=== PATIENT | female | born 1990 | race Caucasian/White ===

== ENCOUNTER 2018-04-15 23:16 | Emergency (ER) | payer SELFPAY ==
[2018-04-15 23:24] VITALS: BP 100/67; PULSE 68; RESP 16; TEMP 98.1; O2SAT 97
[2018-04-15] MEDS ORDERED: DiphenhydrAMINE 50 mg/ml Inj IM STA (23:42)
[2018-04-16] MEDS ORDERED: DiphenhydrAMINE 50 mg/ml Inj ONE (00:04)
--- NOTE | 2018-04-16 00:20 | C.PDOC ---
History Of Present Illness 27 year old female presents to the ED for evaluation of itchy rash for the past 2 days. Patient states she has not come into contact with any new allergens. Patient denies SOB, trouble swallowing, CP, weakness, numbness. Time Seen by Provider: 04/15/18 23:37 Chief Complaint (Nursing): Allergic Reaction History Per: Patient History/Exam Limitations: no limitations Onset/Duration Of Symptoms: Days (2) Current Symptoms Are (Timing): Still Present Possible Cause: Unknown Associated Symptoms: Skin Rash Recent travel outside of the [place] States: No Additional History Per: Patient Past Medical History Reviewed: Historical Data, Nursing Documentation, Vital Signs Vital Signs: Last Vital Signs Temp 98.1 F 04/15/18 23:22 Pulse 68 04/15/18 23:22 Resp 16 04/15/18 23:22 BP 100/67 04/15/18 23:22 Pulse Ox 97 04/16/18 00:20 - Medical History PMH: HTN Surgical History: (x3) - [facility] Procedures EXTRACTION OF POC, LOW CERVICAL, OPEN APPROACH (02/10/16) MONITORING OF POC, CARDIAC RATE, BAND NAILER APPROACH (02/10/16) OCCLUSION OF LEFT FALLOPIAN TUBE, OPEN APPROACH (02/10/16) Family History: States: Unknown Family Hx - Social History Hx Alcohol Use: No Hx Substance Use: No Review Of Systems Constitutional: Negative for: Fever, Chills ENT: Negative for: Mouth Swelling, Throat Swelling Respiratory: Negative for: Shortness of Breath Gastrointestinal: Negative for: Nausea, Vomiting Skin: Positive for: Rash Neurological: Negative for: Weakness, Numbness Physical Exam - Physical Exam Appears: Non-toxic, No Acute Distress Skin: Warm, Dry, Rash (urticaria) Head: Atraumatic, Normacephalic Eye(s): bilateral: Normal Inspection Oral Mucosa: Moist Tongue: No Swelling Lips: No Swelling Throat: Normal, No Erythema, No Exudate Neck: Normal ROM, Supple Chest: Symmetrical Cardiovascular: Rhythm Regular Respiratory: Normal Breath Sounds, No Rales, No Rhonchi, No Wheezing Extremity: Normal ROM, No Tenderness, No Swelling Neurological/Psych: Oriented x3, Normal Speech Gait: Steady ED Course And Treatment O2 Sat by Pulse Oximetry: 97 (ON RA) Pulse Ox Interpretation: Normal Progress Note: Plan: - benadryl 25 mg IM. - pepcid 20 mg PO. - prednisone 60 mg PO. Patient is resting comfortably, tolerating PO, has no shortness of breath, has no intra-oral swelling, no stridor, no rash or pruritus. Patient was advised to avoid potential allergens, and to follow up with physician in 1- 2 days. Disposition - Disposition Referrals: [facility] at [facility] [Outside] Disposition: HOME/ ROUTINE Disposition Time: 00:19 Condition: GOOD Additional Instructions: Follow up in Clinic within 1-2 days. Return to ED if feel worse. 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 - Scribe Statement The provider has reviewed the documentation as recorded by the Scribe Bernabe Rice All medical record entries made by the Scribe were at my direction and personally dictated by me. I have reviewed the chart and agree that the record accurately reflects my personal performance of the history, physical exam, medical decision making, and the department course for this patient. I have also personally directed, reviewed, and agree with the discharge instructions and disposition.
== END 2018-04-16 00:25 | disposition home or self-care (01) ==
LOC: C.ER 23:16
DX: L50.0 Allergic urticaria (principal)
CPT/HCPCS: 96372; 99283; J1200

== ENCOUNTER 2018-10-29 23:35 | Emergency (ER) | payer SELFPAY ==
[2018-10-29 23:42] VITALS: BP 103/72; PULSE 103; TEMP 100.7; O2SAT 98
[2018-10-29] MEDS ORDERED: Promethazine/Cod 6.25mg-10mg/5ml Syr UD PO STA (23:59)
[2018-10-30] MEDS ORDERED: Albuterol 0.083% Inhal Sol (2.5 mg/3 mL) UD ONE (00:01)
[2018-10-30] MEDS: Albuterol 0.083% Inhal Sol (2.5 mg/3 mL) UD INH SCH (00:03)
[2018-10-30] MEDS ORDERED: Promethazine/Cod 6.25mg-10mg/5ml Syr UD ONE (00:09)
--- NOTE | 2018-10-30 00:49 | C.PDOC ---
History Of Present Illness 27 y/o female presents to the ED with complaints of cough, chest congestion, nasal congestion, and sore throat for 1 week. Patient has not tried taking any OTC meds for cough. She did take Tylenol today. Otherwise she denies any ear pain, difficulty swallowing, nausea, vomiting, or difficulty breathing. Time Seen by Provider: 10/29/18 23:46 Chief Complaint (Nursing): ENT Problem History Per: Patient History/Exam Limitations: no limitations Onset/Duration Of Symptoms: Days Current Symptoms Are (Timing): Still Present Location Of Pain: Throat Sick Contacts (Context): None Past Medical History Reviewed: Historical Data, Nursing Documentation, Vital Signs Vital Signs: Last Vital Signs Temp 100.7 F H 10/29/18 23:40 Pulse 103 H 10/29/18 23:40 Resp 16 10/29/18 23:40 BP 103/72 10/29/18 23:40 Pulse Ox 98 10/29/18 23:40 - Medical History PMH: HTN Surgical History: (x3) - [facility] Procedures EXTRACTION OF POC, LOW CERVICAL, OPEN APPROACH (02/10/16) MONITORING OF POC, CARDIAC RATE, MEMBERSHIP SECRETARY APPROACH (02/10/16) OCCLUSION OF LEFT FALLOPIAN TUBE, OPEN APPROACH (02/10/16) Family History: States: Unknown Family Hx - Social History Hx Alcohol Use: No Hx Substance Use: No Review Of Systems Constitutional: Positive for: Fever ENT: Positive for: Nose Congestion, Throat Pain. Negative for: Ear Pain Cardiovascular: Positive for: Other (Chest congestion). Negative for: Chest Pain Respiratory: Positive for: Cough. Negative for: Shortness of Breath Gastrointestinal: Negative for: Nausea, Vomiting, Diarrhea Neurological: Negative for: Headache, Dizziness Physical Exam - Physical Exam Appears: Non-toxic, No Acute Distress Skin: Warm, Dry Head: Atraumatic, Normacephalic Eye(s): bilateral: Normal Inspection, PERRL, EOMI Nose: Other (enlarged turbinates bilaterally) Oral Mucosa: Moist Throat: Erythema (+ pharyngeal erythema), No Exudate Neck: Normal ROM, Supple Chest: Symmetrical Cardiovascular: Rhythm Regular, No Murmur Respiratory: No Decreased Breath Sounds, No Accessory Muscle Use, Rhonchi (bilaterally), Wheezing (bilaterally) Gastrointestinal/Abdominal: Soft, No Tenderness, No Distention Extremity: Bilateral: Normal Color And Temperature, Normal ROM Neurological/Psych: Oriented x3 ED Course And Treatment O2 Sat by Pulse Oximetry: 98 (RA) Pulse Ox Interpretation: Normal Progress Note: Patient given 2 albuterol nebs, oral prednisone, and promethazine with codeine. On reevaluation, she reports feeling better, in no distress. Plan is to d/c patient home with rx for oral pred, motrin, amoxicillin, and tessalon perles. Counseled regarding diagnosis and follow up instructions. Disposition Counseled Patient/Family Regarding: Diagnosis, Need For Followup, Rx Given - Disposition Referrals: [facility] [Outside] Disposition: HOME/ ROUTINE Disposition Time: 00:44 Condition: STABLE Additional Instructions: Please take medications as directeds Follow up in clinic Increase PO fluids Return to ER if worse Prescriptions: Amoxicillin 500 mg PO TID #21 tab Benzonatate [Tessalon Perles] 200 mg PO TID #14 sgl Ibuprofen [Motrin] 600 mg PO Q6H #30 tab predniSONE [Prednisone] 40 mg PO DAILY #8 tab Instructions: Acute Bronchitis, Adult (DC), Viral Upper Respiratory Infection, Adult (DC) Forms: [employer] (Lithuanian) Print Language: LATVIAN - Clinical Impression Clinical Impression: Bronchitis - 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 - Scribe Statement The provider has reviewed the documentation as recorded by the Matildeibrogelio Kemp All medical record entries made by the Matildeibrogelio were at my direction and personally dictated by me. I have reviewed the chart and agree that the record accurately reflects my personal performance of the history, physical exam, medical decision making, and the department course for this patient. I have also personally directed, reviewed, and agree with the discharge instructions and disposition.
[2018-10-30 00:57] VITALS: RESP 20
== END 2018-10-30 00:56 | disposition home or self-care (01) ==
LOC: C.ER 23:35
DX: J40 Bronchitis, not specified as acute or chronic (principal); I10 Essential (primary) hypertension

== ENCOUNTER 2019-03-01 16:00 | Emergency (ER) | payer SELFPAY ==
[2019-03-01 16:06] VITALS: BP 104/65; PULSE 70; RESP 18; TEMP 97.9; O2SAT 98
[2019-03-01] MEDS ORDERED: Tobramycin 0.3% OPHT SOLN OS STA (16:52)
--- NOTE | 2019-03-01 16:59 | C.PDOC ---
History Of Present Illness 28 year old female presents to ED with complaint of swelling and pain to the left eye since this morning. Patient stated that 3 days days ago she noticed a pimple on her left eyelid that was itchy and painful. Patient reports tearing but no discharge. Patient denies any visual changes, trauma, fever, chills, headache, weakness, and dizziness. Chief Complaint (Nursing): Eye Problem History Per: Patient History/Exam Limitations: no limitations Onset/Duration Of Symptoms: Days (3) Current Symptoms Are (Timing): Still Present Quality: "Pain" Wears Contact Lens?: No Associated Symptoms: Pain, Swelling, Itching. denies: Decreased Vision, FB Sensation Past Medical History Reviewed: Historical Data, Nursing Documentation, Vital Signs Vital Signs: Last Vital Signs Temp 97.9 F 03/01/19 16:04 Pulse 70 03/01/19 16:04 Resp 18 03/01/19 16:04 BP 104/65 03/01/19 16:04 Pulse Ox 98 03/01/19 16:04 Primary Care Provider: FAMILY PROVIDER,NO - Medical History PMH: HTN Surgical History: (x3) - [facility] Procedures EXTRACTION OF POC, LOW CERVICAL, OPEN APPROACH (02/10/16) MONITORING OF POC, CARDIAC RATE, PUNCH PRESS OPERATOR APPROACH (02/10/16) OCCLUSION OF LEFT FALLOPIAN TUBE, OPEN APPROACH (02/10/16) Family History: States: Unknown Family Hx - Social History Hx Alcohol Use: No Hx Substance Use: No Review Of Systems Constitutional: Positive for: Fever, Chills. Negative for: Weakness Eyes: Positive for: Pain (pain the left eye, itching, and swelling), Redness. Negative for: Vision Change Skin: Negative for: Rash Neurological: Negative for: Weakness, Numbness Physical Exam - Physical Exam Appears: Non-toxic, No Acute Distress Skin: Normal Color, Warm, Dry Head: Atraumatic, Normacephalic Eye(s): bilateral: PERRL, EOMI, Conjunctiva Pale, left: Other (nell edema of the left upper eyelid, tender to palpation, erythematous) Ear(s): Bilateral: Normal Nose: Normal, No Discharge Oral Mucosa: Moist Tongue: Normal Appearing Lips: Normal Appearing Throat: Normal, No Erythema, No Exudate Neck: Normal ROM, Supple Chest: Symmetrical, No Deformity Cardiovascular: Rhythm Regular, No Murmur Respiratory: Normal Breath Sounds, No Accessory Muscle Use, No Rales, No Rhonchi, No Wheezing Neurological/Psych: Oriented x3, Normal Speech, Normal Cognition, Normal Motor, Normal Sensation Gait: Steady ED Course And Treatment O2 Sat by Pulse Oximetry: 98 (in RA) Pulse Ox Interpretation: Normal Medical Decision Making Medical Decision Making: Impression: 28 year old female presents to ED with left eye pain, swelling, and itching since this morning. Plan: Tobramycin OS applied and given upon discharge recommended warm compresses 4-5 times a day Patient advised to follow up with Optho patien verbalized understanding and is stable for discharge Disposition Counseled Patient/Family Regarding: Diagnosis, Need For Followup, Rx Given - Disposition Referrals: [facility] [Outside] Joo Meehan [Staff Provider] - Disposition: HOME/ ROUTINE Disposition Time: 17:09 Condition: STABLE Additional Instructions: Continue antibiotic eye drops four times a day for 7 days Warm compresses four to five times a day follow up with Ophtho or in clinic if symptoms persist Return to ED if symptoms worsen Prescriptions: Tobramycin 0.3% [Tobrex 0.3% Ophth Oint] 1 drop OS QID 7 Days #1 tube Instructions: [employer] (Hordeolum) Forms: [employer] (Greenlandic) Print Language: JAPANESE - Clinical Impression Clinical Impression: Edema of eyelid, Hordeolum of left eye - 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 (Isa Caraballo) - Scribe Statement The provider has reviewed the documentation as recorded by the Scribe (Isa Caraballo) All medical record entries made by the Scribe were at my direction and personally dictated by me. I have reviewed the chart and agree that the record accurately reflects my personal performance of the history, physical exam, medical decision making, and the department course for this patient. I have also personally directed, reviewed, and agree with the discharge instructions and disposition.
== END 2019-03-01 17:14 | disposition home or self-care (01) ==
LOC: C.ER 16:00
DX: H00.014 Hordeolum externum left upper eyelid (principal); H02.844 Edema of left upper eyelid; I10 Essential (primary) hypertension